=== PATIENT | female | born 1990 | race Caucasian/White ===

== ENCOUNTER → 2021-01-27 | Outpatient (CLI) | payer OTHER ==
[~2021-01-27] MED LIST: BACTRIM 400-801 EACH PO; DOCUSATE SODIU100 MG PO; FAMOTIDINE20 MG PO; FERROUS SULFAT325 M2 PO; FLONASE 0.05% N16 GM; HYDROCHLOROTHIA25 MG PO; HYDROCODON-ACE1 EAC6 PO; IBU800 MG PO; KEFLEX CAP 250250 MG PO; LOVENOX40 MG/0.4 SQ; SERTRALINE HCL50 MG PO; ZESTRIL 40 MG T40 MG PO
== END ==
LOC: KOH-I 10:29
DX: Z01.818 Encounter for other preprocedural examination (principal); S82.292A Other fracture of shaft of left tibia, initial encounter for closed fracture
CPT/HCPCS: 73700